=== PATIENT | female | born 1940 | race Caucasian/White ===

== ENCOUNTER 2017-01-08 12:16 | Observation (INO) | payer MEDICARE, OTHER ==
[~2017-01-08] VITALS: Ht 152.4 cm; Wt 42.0 kg
[2017-01-08] VITALS (8 sets, daily range): BP systolic 116–166; BP diastolic 63–84; PULSE 81–116; RESP 18–21; TEMP 97.4–99.7; O2SAT 88–94
[~2017-01-08 12:16] MED LIST: ASPI325T PO; PREM1.25 PO; XANA0.5T PO
[2017-01-08] MEDS ORDERED: methylPREDNISolone SOD SUCC 125 MG/2 ML VIAL IVP ONE (12:45)
[2017-01-08] MEDS ORDERED: SODIUM CHLORIDE 0.9% FLUSH 10 ML FLUSH IVF PRN (12:45)
--- NOTE | 2017-01-08 12:48 | PD ---
HPI Chief Complaint: Respiratory Symptoms Time Seen by Provider: 12:45 Travel History International Travel<30 days: No Contact w/Intl Traveler<30days: No Traveled to known affect area: No History of Present Illness HPI 76-year-old female patient with history of COPD, pulmonary fibrosis, previous history of mycobacterium intracellular, presents to the ER today for several days history of malaise, coughing with from production, dyspnea on exertion. She has been having subjective fevers. She denies any vomiting or any other issues. She is visiting from [place] and states that she responds poorly to antibiotics by mouth and refuses to take them anymore. Modifying Factors: None Associated Signs & Symptoms: Coughing, shortness of breath, malaise Risk Factors: COPD history PFSH Past Medical History Hx Anticoagulant Therapy: Yes (asa 325mg) Anxiety: Yes High Cholesterol: Yes COPD: Yes Coronary Artery Disease: Yes (MIITRAL VALVE PROLAPSE) Diabetes: No (HYPOGLYCEMIA) GERD: Yes Genitourinary: Yes (IBS) Neurologic: Yes (CERVICAL DISC PROBLEM) Respiratory: Yes (copd) ?: Not Menopausal: Yes Past Surgical History Hysterectomy: Yes Social History Alcohol Use: No Tobacco Use: Yes ("Less than a pack a day") Substance Use: No Allergies-Medications (Allergen,Severity, Reaction): Coded Allergies: Amoxicillin (Verified Allergy, Severe, breathing problems, 01/08/17) Azithromycin (Verified Allergy, Severe, Anaphylaxis, 01/08/17) Clindamycin (Verified Allergy, Severe, Anaphylaxis, 01/08/17) Codeine (Verified Allergy, Severe, Fatigue, 01/08/17) Darvocet-N 100 (Verified Allergy, Severe, Anaphylaxis, 01/08/17) Nasonex (Verified Allergy, Severe, Anaphylaxis, 01/08/17) Oxycodone (Verified Allergy, Severe, Anaphylaxis, 01/08/17) Percocet (Verified Allergy, Severe, Anaphylaxis, 01/08/17) Pravachol (Verified Allergy, Severe, Anaphylaxis, 01/08/17) Rifampin (Verified Allergy, Severe, Anaphylaxis, 01/08/17) Tylenol (Verified Allergy, Severe, Fatigue, 01/08/17) Vioxx (Verified Allergy, Severe, Anaphylaxis, 01/08/17) Erythromycin (Verified Allergy, Unknown, 01/08/17) Breo Ellipta (Verified Adverse Reaction, Unknown, laryngitis, 01/08/17) Keflex (Verified Adverse Reaction, Unknown, 01/08/17) Spiriva (Verified Adverse Reaction, Unknown, urinary retention, 01/08/17) Uncoded Allergies: ANTIHISTAMINES (Adverse Reaction, Severe, FATIGUE, 05/28/15) Reported Meds & Prescriptions Reported Meds & Active Scripts Active Reported Aspirin 325 Mg Tab 325 Mg PO DAILY Premarin (Estrogens Conjugated) 1.25 Mg Tab 1.25 Mg PO DAILY Alprazolam 0.5 Mg Tab 0.5 Mg PO Q6H PRN Review of Systems Except as stated in HPI: all other systems reviewed are Neg Physical Exam Narrative GENERAL: Well-developed elderly white female patient currently in mild respiratory distress. Awake and oriented 3. SKIN: Focused skin assessment warm/dry. HEAD: Atraumatic. Normocephalic. EYES: Pupils equal and round. No scleral icterus. No injection or drainage. ENT: No nasal bleeding or discharge. Mucous membranes pink and moist. NECK: Trachea midline. No JVD. CARDIOVASCULAR: Regular rate and rhythm. No murmur appreciated. RESPIRATORY: No accessory muscle use. Decreased throughout. Breath sounds equal bilaterally. GASTROINTESTINAL: Abdomen soft, non-tender, nondistended. Hepatic and splenic margins not palpable. MUSCULOSKELETAL: No obvious deformities. No clubbing. No cyanosis. No edema. NEUROLOGICAL: Awake and alert. No obvious cranial nerve deficits. Motor grossly within normal limits. Normal speech. PSYCHIATRIC: Appropriate mood and affect; insight and judgment normal. Data Data Last Documented VS Vital Signs Date Time Temp Pulse Resp B/P Pulse Ox O2 Delivery O2 Flow Rate FiO2 01/08/17 13:34 93 Nasal Cannula 2 01/08/17 12:44 99.7 116 18 166/80 Orders Complete Blood Count With Diff (01/08/17 12:45) Comprehensive Metabolic Panel (01/08/17 12:45) B-Type Natriuretic Peptide (01/08/17 12:45) Ckmb (Isoenzyme) Profile (01/08/17 12:45) Troponin I (01/08/17 12:45) Iv Access Insert/Monitor (01/08/17 12:45) Electrocardiogram (01/08/17 12:45) Ecg Monitoring (01/08/17 12:45) Oximetry (01/08/17 12:45) Oxygen Administration (01/08/17 12:45) Chest, Single Ap (01/08/17 12:45) Sodium Chloride 0.9% Flush (Ns Flush) (01/08/17 12:45) Methylprednisolone So Succ Inj (Solumedr (01/08/17 12:45) Albuterol-Ipratropium Neb (Duoneb Neb) (01/08/17 12:45) Chest, Pa & Lat (01/08/17 13:25) Albuterol-Ipratropium Neb (Duoneb Neb) (01/08/17 14:45) Lactic Acid Sepsis Protocol (01/08/17 15:38) Blood Culture (01/08/17 15:38) Ceftriaxone Inj (Rocephin Inj) (01/08/17 15:38) Doxycycline Inj (Vibramycin Inj) (01/08/17 15:38) Admit Order (Ed Use Only) (01/08/17 15:38) Labs Laboratory Tests Test 01/08/17 13:19 White Blood Count 12.0 TH/MM3 Red Blood Count 4.77 MIL/MM3 Hemoglobin 14.6 GM/DL Hematocrit 44.8 % Mean Corpuscular Volume 93.9 FL Mean Corpuscular Hemoglobin 30.6 PG Mean Corpuscular Hemoglobin 32.6 % Concent Red Cell Distribution Width 12.9 % Platelet Count 225 TH/MM3 Mean Platelet Volume 7.4 FL Neutrophils (%) (Auto) 75.6 % Lymphocytes (%) (Auto) 10.2 % Monocytes (%) (Auto) 13.5 % Eosinophils (%) (Auto) 0.3 % Basophils (%) (Auto) 0.4 % Neutrophils # (Auto) 9.2 TH/MM3 Lymphocytes # (Auto) 1.2 TH/MM3 Monocytes # (Auto) 1.6 TH/MM3 Eosinophils # (Auto) 0.0 TH/MM3 Basophils # (Auto) 0.0 TH/MM3 CBC Comment DIFF FINAL Differential Comment Sodium Level 136 MEQ/L Potassium Level 4.1 MEQ/L Chloride Level 98 MEQ/L Carbon Dioxide Level 31.0 MEQ/L Anion Gap 7 MEQ/L Blood Urea Nitrogen 7 MG/DL Creatinine 0.80 MG/DL Estimat Glomerular Filtration 70 ML/MIN Rate Random Glucose 107 MG/DL Calcium Level 9.2 MG/DL Total Bilirubin 0.4 MG/DL Aspartate Amino Transf 27 U/L (AST/SGOT) Alanine Aminotransferase 29 U/L (ALT/SGPT) Alkaline Phosphatase 165 U/L Total Creatine Kinase 46 U/L Troponin I 0.04 NG/ML B-Type Natriuretic Peptide 82 PG/ML Total Protein 7.0 GM/DL Albumin 3.0 GM/DL MDM Medical Decision Making Medical Screen Exam Complete: Yes Emergency Medical Condition: Yes Medical Record Reviewed: Yes Interpretation(s) EKG shows sinus tachycardia rate of 113 bpm with no signs of acute ST-T changes. Laboratory Tests Test 01/08/17 13:19 White Blood Count 12.0 TH/MM3 (4.0-11.0) Neutrophils (%) (Auto) 75.6 % (16.0-70.0) Monocytes (%) (Auto) 13.5 % (0.0-8.0) Neutrophils # (Auto) 9.2 TH/MM3 (1.8-7.7) Monocytes # (Auto) 1.6 TH/MM3 (0-0.9) Estimat Glomerular Filtration 70 ML/MIN (>89) Rate Random Glucose 107 MG/DL (74-106) Alkaline Phosphatase 165 U/L (45-117) Albumin 3.0 GM/DL (3.4-5.0) Last 24 hours Impressions Chest X-Ray 01/08/17 1245 Signed Impressions: Service Date/Time: Sunday, January 08, 2017 13:04 - CONCLUSION: 1. Focal left upper lobe opacity partially obscured by overlying EKG lead. Recommend formal PA and lateral views of the chest for better evaluation. Bennett Aragon MD Differential Diagnosis Coughing, dyspnea on exertionbronchitis versus COPD exacerbation versus pneumonia Narrative Course Chest x-ray shows left upper lobe opacity which is likely old fibrotic scarring , patient has documentation. No signs of obvious lobar pneumonia. IV Solu- Medrol and DuoNeb's were given in the ER with. However, patient continues to do poorly with low saturations upon any kind activity. At this point, my plan would be to admit her for further treatment. Is suspect underlying bronchitis and IV doxycycline was ordered for the patient. She was also ordered for ceftriaxone but unfortunately is allergic to Keflex. At this point, my plan would be to admit her and case was discussed with Dr. Gonzales for admission. Diagnosis Primary Impression: Bronchitis Additional Impression: COPD exacerbation Admitting Information Admitting Physician Requests: it Sydni Garcia MD Jan 08, 2017 12:48
[2017-01-08] MEDS ORDERED: ALPR0.5T3 PO (12:56)
[2017-01-08] MEDS ORDERED: ESTR1.25 PO (12:56)
[2017-01-08] MEDS ORDERED: ASPI325T PO (12:56)
[2017-01-08] MEDS: RESP: ALBUTEROL 2.5 MG/IPRATROPIUM 0.5 MG NEB (SCH) INH ×3 (13:07→14:51)
--- NOTE | 2017-01-08 13:22 | RADHPO ---
EXAM DATE/TIME: 01/08/2017 13:04 [facility] COMPARISON: No previous studies available for comparison. INDICATIONS : Cough MEDICAL HISTORY : Chronic obstructive pulmonary disease. Smoker SURGICAL HISTORY : None. ENCOUNTER: Initial ACUITY: >1 year PAIN SCORE: 0/10 LOCATION: Bilateral chest FINDINGS: There is a focal opacity in the left upper lobe near the apex are she obscured by lead overlying this region. Lungs are otherwise clear. Cardiomegaly some contours are within normal limits. Partially im aged lower cervical spine hardware. Bony thorax is intact. CONCLUSION: 1. Focal left upper lobe opacity partially obscured by overlying EKG lead. Recommend formal PA and l ateral views of the chest for better evaluation. Bennett Aragon MD on January 08, 2017 at 13:16 Board Certified Radiologist. This report was verified electronically.
[2017-01-08 13:38] LABS: CHLORIDE 98 MEQ/L (98-107); POTASSIUM 4.1 MEQ/L (3.5-5.1); SODIUM (NA) 136 MEQ/L (136-145)
[2017-01-08 13:41] LABS: ANION GAP 7 MEQ/L (5-15); AUTOMATED NEUTROPHIL # 9.2 TH/MM3 (1.8-7.7); BASOPHIL % 0.4 % (0.0-2.0); EOSINOPHIL % 0.3 % (0.0-4.0); HEMATOCRIT 44.8 % (35.0-46.0); HEMO FLAGS DIFF FINAL; LYMPH % 10.2 % (9.0-44.0); LYMPHOCYTE # 1.2 TH/MM3 (1.0-4.8); MEAN CELL VOLUME 93.9 FL (80.0-100.0); MEAN CORPUSCULAR HEMOGLOBIN 30.6 PG (27.0-34.0); MEAN CORPUSCULAR HGB CONC 32.6 % (32.0-36.0); MONO % 13.5 % (0.0-8.0); NEUT % 75.6 % (16.0-70.0); PLATELET COUNT 225 TH/MM3 (150-450); RED BLOOD COUNT 4.77 MIL/MM3 (4.00-5.30); RED CELL DISTRIBUTION WIDTH 12.9 % (11.6-17.2)
[2017-01-08 13:42] LABS: BLOOD UREA NITROGEN 7 MG/DL (7-18)
[2017-01-08 13:44] LABS: ALT (GPT) 29 U/L (10-53)
[2017-01-08 13:45] LABS: AST (GOT) 27 U/L (15-37); GLOMERULAR FILTRATION RATE 70 ML/MIN (>89)
[2017-01-08 13:46] LABS: TOTAL BILIRUBIN ADULT 0.4 MG/DL (0.2-1.0)
[2017-01-08 13:47] LABS: ALKALINE PHOSPHATASE 165 U/L (45-117)
[2017-01-08 13:49] LABS: CREATINE KINASE 46 U/L (26-192)
--- NOTE | 2017-01-08 14:29 | RADHPO ---
EXAM DATE/TIME: 01/08/2017 13:41 [facility] COMPARISON: CHEST SINGLE AP, January 08, 2017, 13:04. INDICATIONS : Cough. MEDICAL HISTORY : Chronic obstructive pulmonary disease. Smoker. Prior left lung infection SURGICAL HISTORY : None. ENCOUNTER: Subsequent ACUITY: 1 year PAIN SCORE: 0/10 LOCATION: Bilateral chest FINDINGS: Coarse interstitial changes are present in both lungs. Consolidative changes are seen in the left up per lobe. Apparently this is known to the patient. Heart and pulmonary vascularity are normal. CONCLUSION: 1. Abnormal chest. 2. Consolidative changes in the left upper lobe are present on 01/08/2017. Parenchymal changes now o n the right are new. By report the patient knows of the finding in the left upper lobe but I do not have that chest x-ray. Rachid Anthony MD FACR on January 08, 2017 at 14:03 Board Certified Radiologist. This report was verified electronically.
[2017-01-08] MEDS ORDERED: DOXYCYCLINE INJ 100 MG in SODIUM CHLORIDE 0.9% INJ 100 ML IV STA (15:38)
[2017-01-08] MEDS ORDERED: cefTRIAXone INJ 2,000 MG in SODIUM CHLORIDE 0.9% INJ 100 ML IV STA (15:38)
[2017-01-08] MEDS ORDERED: NALOXONE HCL 0.4 MG/ML AMP IV PRN (16:15)
[2017-01-08] MEDS ORDERED: SODIUM CHLORIDE 0.9% FLUSH 10 ML FLUSH IV FLUSH PRN (16:15)
[2017-01-08] MEDS ORDERED: RESP: ALBUTEROL 2.5 MG/IPRATROPIUM 0.5 MG NEB (PRN) NEB (16:15)
[2017-01-08] MEDS ORDERED: LEVOFLOXACIN 500 MG PREMIX INJ 100 ML IV SCH (17:00)
[2017-01-08 17:37] LABS: BLOOD, URINE NEG (NEG); GLUCOSE,URINE NEG (NEG); KETONE, URINE 15 mg/dL (NEG); NITRITE,URINE NEG (NEG)
[2017-01-08] MEDS: HEPARIN SODIUM - SQ 10,000 UNITS/ML VIAL SQ SCH (17:46)
[2017-01-08 18:04] LABS: URINE COLOR YELLOW (YELLW/STRAW)
[2017-01-08 18:05] LABS: COMMENT (UR) CULT NOT INDICATED; CULTURE IF INDICATED CULT NOT INDICATED; SQUAMOUS EPITHELIAL CELL URINE 0-5 /hpf (0-5); WBC, URINE 0-2 /hpf (0-5)
[2017-01-08 18:27] LABS: LACTIC ACID GHOST NOT REPORTABLE
[2017-01-08] MEDS ORDERED: SODIUM CHLORIDE 0.9% FLUSH 10 ML FLUSH IV FLUSH SCH (21:00)
[2017-01-08] MEDS: RESP: ALBUTEROL 2.5 MG/IPRATROPIUM 0.5 MG NEB (SCH) NEB (21:01)
[2017-01-08] MEDS: methylPREDNISolone SOD SUCC 40 MG/1 ML VIAL IV PUSH SCH (21:41)
[2017-01-09] VITALS: BP 134/82; PULSE 95; RESP 20; TEMP 97.7; O2SAT 93
[2017-01-09] MEDS: RESP: ALBUTEROL 2.5 MG/IPRATROPIUM 0.5 MG NEB (SCH) NEB ×2 (03:16→09:26)
[2017-01-09] MEDS: methylPREDNISolone SOD SUCC 40 MG/1 ML VIAL IV PUSH SCH (05:35)
[2017-01-09] MEDS: HEPARIN SODIUM - SQ 10,000 UNITS/ML VIAL SQ SCH (05:35)
[2017-01-09 07:50] LABS: POTASSIUM 4.2 MEQ/L (3.5-5.1)
[2017-01-09 07:53] LABS: BICARBONATE 31.8 MEQ/L (21.0-32.0)
[2017-01-09 07:54] LABS: AUTOMATED NEUTROPHIL # 9.1 TH/MM3 (1.8-7.7); BASOPHIL % 0.4 % (0.0-2.0); EOSINOPHIL # 0.1 TH/MM3 (0-0.4); EOSINOPHIL % 0.6 % (0.0-4.0); HEMATOCRIT 44.4 % (35.0-46.0); HEMO FLAGS DIFF FINAL; LYMPH % 7.1 % (9.0-44.0); LYMPHOCYTE # 0.7 TH/MM3 (1.0-4.8); MEAN CELL VOLUME 94.5 FL (80.0-100.0); MEAN CORPUSCULAR HEMOGLOBIN 31.4 PG (27.0-34.0); MEAN CORPUSCULAR HGB CONC 33.2 % (32.0-36.0); MONO % 4.9 % (0.0-8.0); PLATELET COUNT 239 TH/MM3 (150-450); RED BLOOD COUNT 4.69 MIL/MM3 (4.00-5.30); RED CELL DISTRIBUTION WIDTH 13.2 % (11.6-17.2); WHITE BLOOD COUNT 10.4 TH/MM3 (4.0-11.0)
[2017-01-09 08:00] VITALS: BP 129/74; PULSE 89; RESP 17; TEMP 97.1; O2SAT 96
[2017-01-09 09:32] VITALS: O2SAT 95
--- NOTE | 2017-01-09 15:37 | MH ---
cc: TORO BUCKLEY MD DATE OF ADMISSION: 01/08/2017 CHIEF COMPLAINT Cough, shortness of breath, wheezing. HISTORY OF PRESENT ILLNESS This is 76-year old female with past medical-surgical history significant for. Anxiety, hyperlipidemia, COPD, mitral prolapse history of hyperglycemia and gastroesophageal reflux disease, irritable bowel syndrome, cervical disc problems, had hysterectomy. She came to the emergency room at [facility] complaining of cough, congestion, shortness of breath that she had a previous history of microbacterium intracellular infection presented to the emergency room today for several days history of malaise, coughing and from yellow sputum production. She had dyspnea on exertion. She has been having subjective fever. Denies any vomiting or any other issues. She is visiting from [place] and stated that she has responds poorly to antibiotic by mouth and refuses to take them anymore. The patient was examined the patient. The patient wants to go home and that she wants to leave AMA and a advised the risks, benefits and alternatives described to the patient including . The patient verbalized understanding. The nurse on duty taking care of that patient was present in the room and she refused in front of the nurse. Other than that nothing significant past medical-surgical history as dictated above. SOCIAL HISTORY She is smoker of less than a pack a day for since the age of 13. Lives with . She is retired nursery worker. She denies any alcohol or drug abuse. FAMILY HISTORY Nothing significant. ALLERGIES AMOXICILLIN AZITHROMYCIN. CLINDAMYCIN CODEINE DARVOCET NASONEX OXYCODONE PERCOCET PRAVACHOL RIFAMPIN TYLENOL VIOXX ERYTHROMYCIN BREO ELLIPTA KEFLEX SPIRIVA ANTIHISTAMINE MEDICATIONS: medication include 1. Aspirin 325 mg p.o. daily. 2. Premarin 1.25 mg p.o. daily. 3. Alprazolam 0.5 mg p.o. q. 6-hour. REVIEW OF SYSTEMS Review of systems positive for cough, congestion, shortness of breath and yellow phlegm and feeling weak and tired. All other review of systems are negative. PHYSICAL EXAMINATION IN GENERAL: This is a 76-year female sitting on the bed not in acute distress. VITAL SIGNS: Vital signs: Temperature 97.1, heart rate 89, respiration 17, blood pressure 129/74, O2 saturation 96% room air. HEAD, EYES, EARS, NOSE, AND THROAT: Normocephalic, atraumatic. EOMI. Oral mucosa moist. NECK: Neck is supple. No visible thyromegaly or neck mass. Trachea central. CARDIOVASCULAR SYSTEM: Regular rate and rhythm. LUNGS: Bilateral wheezing, decreased air entry bilaterally mild crackles bilaterally. ABDOMEN: Soft and nontender. Bowel sounds audible. EXTREMITIES: No cyanosis or clubbing. Full range of motion of all extremities. NEUROLOGIC: Awake, alert, oriented x4. No focal deficits. SKIN: Warm and dry. PSYCHIATRIC: The patient is cooperative, mood and affect are normal. LABORATORY DATA Includes CBC is totally unremarkable except for neutrophil percentage is high at 87.0. Therefore percentage is low 7.1. Basic metabolic profile totally unremarkable except for glucose of 161 high, lactic acid level was 2.7 now it is 2.6, alkaline phosphatase high 165, total protein 7.0, albumin 3.0. Urine examination normal except for 15 ketone high. He was placed with x2 done negative so far. Chest x-ray Was done shows focal left upper lobe opacity partially secured by overlapping. Electrocardiogram in emergency department recommended follow-up PA and lateral view of the chest for better evaluation. This was done on 01/08/2017, and another x-ray was done on 01/08/2017 shows abnormal chest consolidative changes in the left upper lobe are present on 01/08/2017. Abdominal changes now on the right are new. The patient knows of the finding in the left upper lobe. By report the patient has known of the finding in the left upper lobe but the radiologist does not have any x-ray report of her in the past. ASSESSMENT AND PLAN: 1. This is 36-year female who came to the ER diagnosed with shortness of breath secondary to COPD exacerbation. 2. The patient was given Solu-Medrol and DuoNeb nebulization, and Levaquin 500 mg IV daily, Rocephin 1 gram IV daily and doxycycline 10 mg IV stat. 3. The patient feels better. The patient wants to leave Against medical advice, risks, benefits and alternatives were explained to the patient. The patient verbalized understanding. The nurse on duty was present in the room, the patient refused in front of the nurse. 4. History of anxiety. 5. History of chronic obstructive pulmonary disease. 6. I checked later, the patient left against medical advice. MD Christine Watkins /1:39 PM /3:20 PM
--- NOTE | 2017-01-09 21:12 | EKG ---
Date Performed: 01/08/2017 Time Performed: 12:45:56 PTAGE: 76 years EKG: Sinus tachycardia Possible left atrial abnormality Indeterminate axis rSr'(V1) - probable n ormal variant Septal ST-T changes are nonspecific Borderline ECG NO PREVIOUS TRACING DOCTOR: Jaren Bernabe Interpretating Date/Time 01/09/2017 21:10:33
== END 2017-01-09 10:37 | disposition left against medical advice (07) ==
LOC: PHED 12:16 → PHEDA 15:41 → PH3B 17:13
PROVIDERS: ADMIT Internal Medicine; ATTEND Internal Medicine
DX: J44.1 Chronic obstructive pulmonary disease with (acute) exacerbation (principal); F41.9 Anxiety disorder, unspecified; I25.10 Atherosclerotic heart disease of native coronary artery without angina pectoris; I34.1 Nonrheumatic mitral (valve) prolapse; K58.9 Irritable bowel syndrome, unspecified; K21.9 Gastro-esophageal reflux disease without esophagitis; F17.200 Nicotine dependence, unspecified, uncomplicated; Z88.1 Allergy status to other antibiotic agents; Z88.5 Allergy status to narcotic agent; Z88.8 Allergy status to other drugs, medicaments and biological substances; Z79.82 Long term (current) use of aspirin
CPT/HCPCS: 71010; 71020; 80048; 80053; 81001; 82550; 83605; 83880; 84484; 85025; 87040; 93005; 94640; 94664; 96374; 96375; 99285; G0378; J1644; J1956; J2920; J2930